=== PATIENT | female | born 1995 | race Caucasian/White ===

== ENCOUNTER → 2018-02-21 | Outpatient (CLI) | payer OTHER ==
--- NOTE | 2018-02-21 13:26 | MRI ---
EXAM DESCRIPTION: Brain w/o Contrast: MRI. CLINICAL HISTORY: G44.209 H53.9. Tension-type headache, unspecified, not intractable. Unspecified visual disturbance. COMPARISON: None. TECHNIQUE: Multiplanar, high-field MRI unit, multiple diffusion sequences, multiple conventional sequences without contrast. FINDINGS: Normal FLAIR and T2-weighted signal in the periventricular white matter and neves-white matter junctions of the cerebral hemispheres. . No hemorrhage, no cerebral edema, no mass-effect. Normal signal in the bilateral basal ganglia. Normal signal in the brainstem and cerebellar hemispheres. No hemorrhage, no cerebral edema, no mass-effect. Concordance of the diffusion and non-diffusion sequences with no diffusion restriction. Cortical sulci, ventricles, and other CSF spaces, and the subdural spaces are physiologic for patient's age. No effacement or displacement. No midline shift. No extra-axial hemorrhage. Normal flow signal void in the major vessels of the [place], and the venous sinuses. IACs are symmetric bilaterally. Normal signal in the bilateral mastoid air cells. No mass effect in the bilateral cerebellopontine angles. Pituitary gland occupies most of the sella. Base of the cerebellar tonsils is at the level the foramen magnum. Polyp or mucous retention cyst in the base of the left maxillary antrum. 2 polyps or cysts which are smaller, in the base of the right antrum.. The bony calvarium is intact. IMPRESSION: 1. No hemorrhage, no cerebral edema, no mass effect, no shift. Normal signal in the subcortical and periventricular white matter. No hydrocephalus or evidence of effacement of the CSF spaces. 2. Normal noncontrast MRI diffusion study with no evidence of acute or subacute infarction. 3. Chronic paranasal sinus disease. Please see above details. Electronically signed by: Sascha Smith MD 02/21/2018 1:25 PM CDT
== END ==
LOC: MRI 08:59
PROVIDERS: ATTEND Family Medicine
DX: G44.209 Tension-type headache, unspecified, not intractable (principal); J32.9 Chronic sinusitis, unspecified; H53.9 Unspecified visual disturbance